=== PATIENT | male | born 1995 | race Caucasian/White ===

== ENCOUNTER 2017-03-13 07:07 | Emergency (ER) | payer SELFPAY ==
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
--- NOTE | 2017-03-13 08:05 | ED ORDER SUMMARY ---
..... Patient: BENNIE RODGERS OrderSheet [facility] VisitID: [id number] [address] [place] [address] 21y, M Registration Date/Time: 03/13/2017 ORDER SHEET Weight: 104.3 kg (stated) Allergies: GENERAL ORDERS: MEDICATION ORDERS: GI Cocktail WHITE PO 30 mL with Lidocaine Viscous Mouth/Throat 15 mL, Maalox Plus Oral 15 mL (NOW) (07:58 03/13/2017 Trina Ceja verbal order read back to Lucie ORELLANA) (7:59 Trina Schneider.Héctor) IV FLUIDS: ORDER SHEET NOTES: [Electronically signed by Evie Levi MD (08:10 03/13/2017)] [Electronically signed by Odessa Oden R.N. (08:58 03/13/2017)] [Electronically locked/signed by Odessa Oden R.N. (08:58 03/13/2017)]
--- NOTE | 2017-03-13 08:05 | ED ORDER SUMMARY ---
..... Patient: BENNIE RODGERS OrderSheet [facility] VisitID: [id number] [address] [place] [address] 21y, M Registration Date/Time: 03/13/2017 ORDER SHEET Weight: 104.3 kg (stated) Allergies: GENERAL ORDERS: MEDICATION ORDERS: GI Cocktail WHITE PO 30 mL with Lidocaine Viscous Mouth/Throat 15 mL, Maalox Plus Oral 15 mL (NOW) (07:58 03/13/2017 Trina Ceja verbal order read back to Lucie ORELLANA) (7:59 Trina Schneider.Héctor) IV FLUIDS: ORDER SHEET NOTES: [Electronically signed by Evie Levi MD (08:10 03/13/2017)] [Electronically signed by Odessa Oden R.N. (08:58 03/13/2017)] [Electronically locked/signed by Odessa Oden R.N. (08:58 03/13/2017)]
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
--- NOTE | 2017-03-13 08:58 | ED DISCHARGE INSTRUCTIONS ---
Patient: BENNIE RODGERS General Instructions [facility] VisitID: [id number] [place] [address] 21y, M Registration Date/Time: 03/13/2017 Laceration to the right elbow.No foreign body present. INSTRUCTIONS Apply ice for 20 minutes three times a day as needed and until better. Don't apply ice directly to skin and don't use while asleep. Protect wound and keep wound area clean. (Please do not immerse, rub or scrub the wound until your stitches are out. You may let water run over the wound, however.). Change dressing daily. Sutures should be removed in seven days. Warnings: GENERAL WARNINGS: Return or contact your physician immediately if your condition worsens or changes unexpectedly, if not improving as expected, or if other problems arise. Follow-up: Follow up with your doctor in seven days for suture removal. Understanding of the discharge instructions verbalized by patient. ADDITIONAL INFORMATION Laceration, Extremity (Sutures, [place], Or Tape) A laceration is a cut through the skin. This will usually require stitches (sutures) or silke if it is deep. Minor cuts may be treated with surgical tape closures. Home care The following guidelines will help you care for your laceration at home: Keep the wound clean and dry. If a bandage was applied and it becomes wet or dirty, replace it. Otherwise, leave it in place for the first 24 hours, then change it once a day or as directed. If stitches or silke were used, clean the wound daily: After removing the bandage, wash the area with soap and water. Use a wet cotton swab to loosen and remove any blood or crust that forms. After cleaning, keep the wound clean and dry. Talk with your doctor before applying any antibiotic ointment to the wound. Reapply the bandage. You may remove the bandage to shower as usual after the first 24 hours, but do not soak the area in water (no swimming) until the stitches or silke are removed. If surgical tape closures were used, keep the area clean and dry. If it becomes wet, blot it dry with a towel. The doctor may prescribe an antibiotic cream or ointment to prevent infection. Do not stop taking this medication until you have finished the prescribed course or the doctor tells you to stop. The doctor may also prescribe medications for pain. Follow the doctors instructions for taking these medications. If you have chronic liver or kidney disease or ever had a stomach ulcer or GI bleeding, talk with your doctor before using these medicines. Follow-up care Follow up with your health care provider. Most skin wounds heal within ten days. However, an infection may sometimes occur despite proper treatment. Therefore, check the wound daily for the signs of infection listed below. Stitches and silke should be removed within 714 days. If surgical tape closures were used, you may remove them after 10 days, if they have not fallen off by then. Notify your doctor if you notice persistent numbness or weakness in the injured extremity. (Note:A radiologist will review any X-rays that were taken. We will notify you of any new findings that may affect your care.) When to seek medical care Get prompt medical attention if any of these occur: Increasing pain in the wound Redness, swelling, or pus coming from the wound Fever of 100.4F (38C) or higher, or as directed by your health care provider If stitches or silke come apart or fall out before your next appointment If the surgical tape closures fall off within seven days, or the wound edges re-open Bleeding not controlled by direct pressure You have been given the following additional information: Laceration, Extrem (Suture, Staple, Or Tape) (Electronically signed by Evie Levi MD 03/13/2017 8:10)
--- NOTE | 2017-03-13 08:58 | ED MAR SUMMARY ---
..... Medication Administration Record [facility] [address] [place] [address] Patient: BENNIE RODGERS Visit ID: [id number] 21y, M Weight: 104.3 kg Height/Length: 69 in BMI: 34 ALLERGIES: Given 07:59 03/13/2017 Odessa Oden R.N. Medication Administered: GI COCKTAIL WHITE [PO] (SIMETHICONE), Dose: 30 mL PO. Medication Ordered: GI Cocktail WHITE PO 30 mL with Lidocaine Viscous Mouth/Throat 15 mL, Maalox Plus Oral 15 mL (NOW).
--- NOTE | 2017-03-13 08:58 | ED MED RECONCILIATION SUMMARY ---
Patient: BENNIE RODGERS Medication Reconciliation Report [facility] VisitID: [id number] [address] [place] [address] 21y, M Registration Date/Time: 03/13/2017 Weight: 104.3 kg Height/Length: 69 in. BMI: 34.0 ALLERGIES: The patient's Home Medications are listed below: Not obtained. The source(s) of the original Home Medication information: Not obtained. The following Medications were given to the patient in the Emergency Department: GI COCKTAIL WHITE [PO] PO 30 mL, administered: 03/13/2017 7:59:00 AM The following Medications were prescribed to the patient: None.
--- NOTE | 2017-03-13 08:58 | ED MAR SUMMARY ---
..... Medication Administration Record [facility] [address] [place] [address] Patient: BENNIE RODGERS Visit ID: [id number] 21y, M Weight: 104.3 kg Height/Length: 69 in BMI: 34 ALLERGIES: Given 07:59 03/13/2017 Odessa Oden R.N. Medication Administered: GI COCKTAIL WHITE [PO] (SIMETHICONE), Dose: 30 mL PO. Medication Ordered: GI Cocktail WHITE PO 30 mL with Lidocaine Viscous Mouth/Throat 15 mL, Maalox Plus Oral 15 mL (NOW).
--- NOTE | 2017-03-13 08:58 | ED MED RECONCILIATION SUMMARY ---
Patient: BENNIE RODGERS Medication Reconciliation Report [facility] VisitID: [id number] [address] [place] [address] 21y, M Registration Date/Time: 03/13/2017 Weight: 104.3 kg Height/Length: 69 in. BMI: 34.0 ALLERGIES: The patient's Home Medications are listed below: Not obtained. The source(s) of the original Home Medication information: Not obtained. The following Medications were given to the patient in the Emergency Department: GI COCKTAIL WHITE [PO] PO 30 mL, administered: 03/13/2017 7:59:00 AM The following Medications were prescribed to the patient: None.
== END 2017-03-13 08:08 | disposition home or self-care (01) ==
LOC: ED SRH 07:07
DX: S51.011A Laceration without foreign body of right elbow, initial encounter (principal); F10.129 Alcohol abuse with intoxication, unspecified; F12.10 Cannabis abuse, uncomplicated; W01.198A Fall on same level from slipping, tripping and stumbling with subsequent striking against other object, initial encounter; Y93.9 Activity, unspecified; Y92.009 Unspecified place in unspecified non-institutional (private) residence as the place of occurrence of the external cause; Y99.9 Unspecified external cause status

== ENCOUNTER 2017-03-21 17:59 | Emergency (ER) | payer SELFPAY ==
--- NOTE | 2017-03-21 19:37 | DIAGNOSTIC IMAGING REPORT ---
PROCEDURE: XR ELBOW 3 OR 4 VIEWS - RIGHT INDICATION: TRAUMA/INJURY TECHNIQUE: Four views. COMPARISON: None. FINDINGS: Mild soft tissue swelling over the olecranon process of the right elbow. Osseous structures and joint spaces are normal. No evidence of an effusion. IMPRESSION: 1. Soft tissue swelling over the dorsum of the right elbow. 2. Otherwise negative right elbow.
--- NOTE | 2017-03-21 20:05 | ED CLINICAL REPORT ---
Clinical Report - Physicians/Mid Levels [facility] [address] [place] [place] [address] 03/21/2017 18:00 Patient: BENNIE RODGERS Time Seen: 18:58 Mar 21 2017. Arrived- By private vehicle. Historian- patient (pt, so). HISTORY OF PRESENT ILLNESS Chief Complaint: Injury to the right elbow. 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 The patient sustained a direct blow. Patient is experiencing mild pain. Patient denies injury to the head or neck. 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 elbow pain continued, pain worse w/ movement. Unable to extend to full rom. RHD). REVIEW OF SYSTEMS The patient sustained a laceration. No tingling. All systems otherwise negative, except as recorded above. PAST HISTORY The patient's dominant hand is the right. He has not had a prior injury to the same area. Tetanus immunization status is up-to-date. SOCIAL HISTORY Current every day heavy tobacco smoker. Alcohol use. History of drug use: marijuana. No methamphetamines. ADDITIONAL NOTES The nursing notes have been reviewed. PHYSICAL EXAM Vital Signs: 03/21/2017 18:31 BP: 136/91. HR: 91. RR: 16. O2 saturation: 100%. Temp: 98.6 F. Pain level now: 2/10. Appearance: Alert. Head: Head atraumatic. ENT: Ears normal. Neck: Normal inspection. Neck supple. CVS: Normal heart rate and rhythm. Heart sounds normal. Respiratory: No respiratory distress. Breath sounds normal. Extremities: Right arm. No tenderness or laceration. Right elbow. (lac, with 1 suture, c/d/i). Right forearm. No tenderness or swelling. Right hand. Neurovascular intact distally. No tenderness or swelling. Neuro, Vascular and Tendons: Vascular status intact. Capillary refill not prolonged. Motor intact. No functional tendon deficit. No weakness. Neuro: Oriented X 3. LABS, X-RAYS, AND EKG Rt Elbow X-ray: (IMPRESSION: 1. Soft tissue swelling over the dorsum of the right elbow. 2. Otherwise negative right elbow. Electronically Final signed by:Aaron Farnsworth MD 03/21/2017 7:31:36 PM). PROGRESS AND PROCEDURES PROCEDURES (SLING Right). Course of Care: Pt in the er with no signs of obvious fx, unable to extend. LAC repair is well, one suture removed, pt removed others him self. NO drainage, no erythema of lac. Discussed option for mri/ ct, repeat imaging in 8-10 days, and pt will obt to f/u outpatient for further eval. Good rom of wrist, and good distal strength. Patient is stable. Patient/family counseled. Disposition: Discharged. Condition: good. CLINICAL IMPRESSION Contusion to the right elbow. INSTRUCTIONS Protect wound and keep wound area clean. Apply bacitracin twice daily. Limit use of your right hand for eight days. (an occult fracture can not be excluded, follow up call for next appointment). Understanding of the discharge instructions verbalized by patient. Follow-up with: [facility], , [address], , [place], [address] Follow up. Call for the next available appointment. (Electronically signed by Maddie East P.A.-C 03/21/2017 20:44)
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
--- NOTE | 2017-03-21 20:05 | ED ORDER SUMMARY ---
..... Patient: BENNIE RODGERS OrderSheet [facility] VisitID: [id number] [address] [place] [address] 21y, M Registration Date/Time: 03/21/2017 ORDER SHEET Weight: 104.3 kg (stated) Allergies: Sulfa Antibiotics GENERAL ORDERS: Elbow 3 or 4V Right Urgent (18:51 03/21/2017 Vishal P.A.-C) (18:54 Lyssa MOYA Tech1) Sling - arm (20:03 03/21/2017 Vishal P.A.-C) (20:16 Amilcar Ceja) MEDICATION ORDERS: IV FLUIDS: ORDER SHEET NOTES: [Electronically signed by Yasmeen Lee R.N. (20:33 03/21/2017)] [Electronically signed by Maddie EastABatsheva-Edgar (20:44 03/21/2017)] [Electronically locked/signed by Yasmeen Lee R.N. (20:33 03/21/2017)]
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
--- NOTE | 2017-03-21 20:05 | ED ORDER SUMMARY ---
..... Patient: BENNIE RODGERS OrderSheet [facility] VisitID: [id number] [address] [place] [address] 21y, M Registration Date/Time: 03/21/2017 ORDER SHEET Weight: 104.3 kg (stated) Allergies: Sulfa Antibiotics GENERAL ORDERS: Elbow 3 or 4V Right Urgent (18:51 03/21/2017 Vishal P.A.-C) (18:54 Lyssa MOYA Tech1) Sling - arm (20:03 03/21/2017 Vishal P.A.-C) (20:16 Amilcar Ceja) MEDICATION ORDERS: IV FLUIDS: ORDER SHEET NOTES: [Electronically signed by Yasmeen Lee R.N. (20:33 03/21/2017)] [Electronically signed by Maddie EastABatsheva-Edgar (20:44 03/21/2017)] [Electronically locked/signed by Yasmeen Lee R.N. (20:33 03/21/2017)]
--- NOTE | 2017-03-21 20:45 | ED MED RECONCILIATION SUMMARY ---
Patient: BENNIE RODGERS SIDRA Medication Reconciliation Report [facility] VisitID: [id number] [address] [place] [address] 21y, M Registration Date/Time: 03/21/2017 Weight: 104.3 kg Height/Length: 69 in. BMI: 34.0 ALLERGIES: Sulfa Antibiotics The patient's Home Medications are listed below: NONE. The source(s) of the original Home Medication information: patient The following Medications were given to the patient in the Emergency Department: None. The following Medications were prescribed to the patient: None.
--- NOTE | 2017-03-21 20:45 | ED DISCHARGE INSTRUCTIONS ---
Patient: BENNIE RODGERS General Instructions [facility] VisitID: [id number] [address] [place], [place] [id number] 21y, M Registration Date/Time: 03/21/2017 Contusion to the right elbow. INSTRUCTIONS Protect wound and keep wound area clean. Apply bacitracin twice daily. Limit use of your right hand for eight days. (an occult fracture can not be excluded, follow up call for next appointment). Understanding of the discharge instructions verbalized by patient. [facility], , [address], , [place], [address] Follow up. Call for the next available appointment. ADDITIONAL INFORMATION Contusion:Upper Extremity You have a contusion of your upper extremity (arm, wrist, hand or fingers). This causes local pain, swelling and sometimes bruising. There are no broken bones. This injury takes a few days to a few weeks to heal. A sling may be provided for comfort and arm support. Home Care: 1) Keep your arm elevated to reduce pain and swelling. This is very important during the first 48 hours. 2) Apply an ice pack (ice cubes in a plastic bag, wrapped in a towel) over the injured area for 20 minutes every 1-2 hours the first day for pain relief. Continue this 3-4 times a day until the pain and swelling goes away. 3) You may use acetaminophen (Tylenol) or ibuprofen (Motrin, Advil) to control pain, unless another pain medicine was prescribed. [ NOTE : If you have chronic liver or kidney disease or ever had a stomach ulcer or GI bleeding, talk with your doctor before using these medicines.] 4) If a sling was provided, you may remove it to shower or bathe. Do not wear it for more than one week or it may cause joint stiffness. Follow Up with your doctor or this facility if you are not starting to improve within the next THREE days. [NOTE: If X-rays were taken, they will be reviewed by a radiologist. You will be notified of any new findings that may affect your care.] Get Prompt Medical Attention if any of the following occur: -- Pain or swelling increases -- Redness, warmth or drainage -- Hand or fingers becomes cold, blue, numb or tingly You have been given the following additional information: Contusion, Upper Extremity Limit use of your right hand for eight days. (Electronically signed by Maddie East P.A.-C 03/21/2017 20:44)
--- NOTE | 2017-03-21 20:45 | ED MAR SUMMARY ---
..... Medication Administration Record [facility] [address], [place] [id number] Patient: BENNIE RODGERS Visit ID: [id number] 21y, M Weight: 104.3 kg Height/Length: 69 in BMI: 34 ALLERGIES: Sulfa Antibiotics
--- NOTE | 2017-03-21 20:45 | ED DISCHARGE INSTRUCTIONS ---
Patient: BENNIE RODGERS General Instructions [facility] VisitID: [id number] [address] [place], [place] [id number] 21y, M Registration Date/Time: 03/21/2017 Contusion to the right elbow. INSTRUCTIONS Protect wound and keep wound area clean. Apply bacitracin twice daily. Limit use of your right hand for eight days. (an occult fracture can not be excluded, follow up call for next appointment). Understanding of the discharge instructions verbalized by patient. [facility], , [address], , [place], [id number] Follow up. Call for the next available appointment. ADDITIONAL INFORMATION Contusion:Upper Extremity You have a contusion of your upper extremity (arm, wrist, hand or fingers). This causes local pain, swelling and sometimes bruising. There are no broken bones. This injury takes a few days to a few weeks to heal. A sling may be provided for comfort and arm support. Home Care: 1) Keep your arm elevated to reduce pain and swelling. This is very important during the first 48 hours. 2) Apply an ice pack (ice cubes in a plastic bag, wrapped in a towel) over the injured area for 20 minutes every 1-2 hours the first day for pain relief. Continue this 3-4 times a day until the pain and swelling goes away. 3) You may use acetaminophen (Tylenol) or ibuprofen (Motrin, Advil) to control pain, unless another pain medicine was prescribed. [ NOTE : If you have chronic liver or kidney disease or ever had a stomach ulcer or GI bleeding, talk with your doctor before using these medicines.] 4) If a sling was provided, you may remove it to shower or bathe. Do not wear it for more than one week or it may cause joint stiffness. Follow Up with your doctor or this facility if you are not starting to improve within the next THREE days. [NOTE: If X-rays were taken, they will be reviewed by a radiologist. You will be notified of any new findings that may affect your care.] Get Prompt Medical Attention if any of the following occur: -- Pain or swelling increases -- Redness, warmth or drainage -- Hand or fingers becomes cold, blue, numb or tingly You have been given the following additional information: Contusion, Upper Extremity Limit use of your right hand for eight days. (Electronically signed by Maddie East P.A.-C 03/21/2017 20:44)
--- NOTE | 2017-03-21 20:45 | ED MAR SUMMARY ---
..... Medication Administration Record [address] [place], [place] [id number] Patient: BENNIE RODGERS Visit ID: [id number] 21y, M Weight: 104.3 kg Height/Length: 69 in BMI: 34 ALLERGIES: Sulfa Antibiotics
--- NOTE | 2017-03-21 20:45 | ED MED RECONCILIATION SUMMARY ---
Patient: BENNIE RODGERS SIDRA Medication Reconciliation Report [facility] VisitID: [id number] [address] [place] [address] 21y, M Registration Date/Time: 03/21/2017 Weight: 104.3 kg Height/Length: 69 in. BMI: 34.0 ALLERGIES: Sulfa Antibiotics The patient's Home Medications are listed below: NONE. The source(s) of the original Home Medication information: patient The following Medications were given to the patient in the Emergency Department: None. The following Medications were prescribed to the patient: None.
== END 2017-03-21 20:24 | disposition home or self-care (01) ==
LOC: ED SRH 17:59
DX: S50.01XD Contusion of right elbow, subsequent encounter (principal); F17.210 Nicotine dependence, cigarettes, uncomplicated; F12.10 Cannabis abuse, uncomplicated; Z88.2 Allergy status to sulfonamides